=== PATIENT | female | born 1995 | race African-American/Black ===

== ENCOUNTER 2017-06-07 14:18 | Emergency (ER) | payer SELFPAY ==
[~2017-06-07] VITALS: Ht 160 cm; Wt 61.4 kg
[2017-06-07 14:25] VITALS: BP 110/78
== END 2017-06-07 20:20 | disposition left against medical advice (07) ==
LOC: EDBD 14:18 → ER 20:02
DX: Z04.1 Encounter for examination and observation following transport accident (principal); Z53.21 Procedure and treatment not carried out due to patient leaving prior to being seen by health care provider

== ENCOUNTER 2018-01-14 18:52 | Emergency (ER) | payer MEDICAID ==
[~2018-01-14] VITALS: Ht 162.6 cm; Wt 59.0 kg
[2018-01-14] MEDS ORDERED: IBUPROFEN 600MG TABLET PO ONE (19:15)
[2018-01-14 22:05] VITALS: BP 120/70
== END 2018-01-14 22:47 | disposition home or self-care (01) ==
LOC: ER 19:50
DX: S76.912A Strain of unspecified muscles, fascia and tendons at thigh level, left thigh, initial encounter (principal); X50.9XXA Other and unspecified overexertion or strenuous movements or postures, initial encounter; Y93.A1 Activity, exercise machines primarily for cardiorespiratory conditioning; Y92.39 Other specified sports and athletic area as the place of occurrence of the external cause; R03.0 Elevated blood-pressure reading, without diagnosis of hypertension
CPT/HCPCS: 99283

== ENCOUNTER 2025-03-23 07:28 | Emergency (ER) | payer MEDICAID ==
[~2025-03-23] VITALS: Ht 160 cm; Wt 83.0 kg
[2025-03-23 07:31] VITALS: O2SAT 100
[2025-03-23 07:45] VITALS: BP 102/72; PULSE 99; RESP 16; TEMP 36.6; O2SAT 99
== END 2025-03-23 09:20 | disposition home or self-care (01) ==
LOC: ER 07:28
DX: M79.641 Pain in right hand (principal); Z53.21 Procedure and treatment not carried out due to patient leaving prior to being seen by health care provider